=== PATIENT | male | born 1995 | race African-American/Black ===

== ENCOUNTER → 2016-09-18 | Outpatient (CLI) | payer BC ==
[~2016-09-18] MED LIST: GADOBUTROL 10mMol/10ml INJECTION IV ONE; SALINE FLUSH 10ml SYRINGE ONE
--- NOTE | 2016-09-19 08:18 | DI ---
Indication: ITS.REASON: G50.0 Trigeminal neuralgia; Swelling of right scalp PROCEDURE: MRI BRAIN W/WO CONTRAST: Encounter: Initial Comparisons: None Technique: Multiplanar, multisequence, MR imaging of the head with and without contrast was acquired. Special sequences were performed with attention to the internal artery canals. Contrast: 10 mL of Gadavist FINDINGS: IACs: Internal auditory canals appear normal. The seventh, eighth and fifth cranial nerves appear grossly normal. Meckel's cave area appears normal bilaterally. No masses in the prepontine or cerebellar pontine angle. Brain: The ventricles are of normal size, shape, and contour for the patient's age. The brain stem, cerebellum, and cerebral hemispheres have a normal morphologic appearance as well as MR signal intensity on all pulse sequences. Following intravenous administration of contrast, no areas of abnormal enhancement are evident. There are no areas of restricted diffusion to suggest an acute infarct. There is no evidence of an intracranial mass lesion, intracranial hemorrhage, or hydrocephalus. The visualized portions of the orbits, calvarium, paranasal sinuses, and skull base demonstrate no significant abnormality. No visible scalp swelling or mass identified. IMPRESSION: Normal exam .
== END ==
LOC: IMA 15:41
PROVIDERS: ATTEND Family Medicine
DX: G50.0 Trigeminal neuralgia (principal)
CPT/HCPCS: 70553; A9585